=== PATIENT | male | born 1930 | race Caucasian/White ===

== ENCOUNTER → 2016-04-24 | Outpatient (CLI) | payer MEDICARE, BC ==
--- NOTE | 2016-04-24 10:55 | XR ---
EXAMINATION TYPE: XR chest 2V DATE OF EXAM: 04/24/2016 10:30 AM COMPARISON: 03/30/2015 HISTORY: Chest pain TECHNIQUE: Frontal and lateral views of the chest are obtained. FINDINGS: There is no focal air space opacity. No evidence for pnuemothorax.No pleural effusion. The cardiac silhouette size is within normal limits. The osseous structures are grossly intact. There is a large fixed hiatal hernia. IMPRESSION: 1. No acute cardiopulmonary process.
== END | disposition home or self-care (01) ==
LOC: RADXRMAIN 10:07
PROVIDERS: ATTEND Internal Medicine
DX: J06.9 Acute upper respiratory infection, unspecified (principal)
CPT/HCPCS: 71020

== ENCOUNTER 2016-08-09 11:56 | Emergency (ER) | payer MEDICARE, BC ==
[2016-08-09 12:46] VITALS: RESP 18; TEMP 97.5
--- NOTE | 2016-08-09 14:01 | CT ---
EXAMINATION TYPE: CT brain wo con DATE OF EXAM: 08/09/2016 1:37 PM COMPARISON: NONE INDICATION: Fall, left sided laceration/contusion. DLP: 1684 mGycm, Automated exposure control for dose reduction was used. CONTRAST: None CT of the brain is performed utilizing 3 mm thick sections through the posterior fossa and 3 mm thick sections through the remaining calvarium. Study is performed within 24 hours of arrival to the hosp [facility]. No abnormal hyperdensity is present to suggest an acute intracranial hemorrhage. No mass lesion is evident. No acute infarcts are evident. There is mild. Ventricular white matter hypodensity, likely on the bas is of chronic white matter ischemic changes. Ventricles and sulci are prominent for the patient age. Paranasal sinuses and mastoid air cells within the [id number] are clear. IMPRESSIONS: 1. Age-related atrophy with chronic appearing periventricular white matter ischemic changes.
--- NOTE | 2016-08-09 14:06 | CT ---
EXAMINATION TYPE: CT facial bones wo con DATE OF EXAM: 08/09/2016 1:37 PM COMPARISON: NONE HISTORY: Left sided laceration and contusion. CT DLP: 1684 mGycm Automated exposure control for dose reduction was used. TECHNIQUE: CT scan of the sinuses is performed without contrast, axial images are obtained, coronal r eformatted images are also reviewed. FINDINGS: Septal deviation is noted. No nasal bone fractures identified. Soft tissues appear within n ormal limits. The patient's laceration is not identified. Orbits are symmetrical. Paranasal sinuses a nd mastoid air cells are unremarkable. Dental amalgam scatter artifact is present at the level of the mandible. No acute fractures are evident. There are some punctate densities within the central forehead region above the bridge of the nose could be skin calcifications or foreign bodies at this location of the p atient's laceration. IMPRESSION: 1. Foreign bodies versus skin calcifications superior to the bridge of the nose. 2. No acute abnormality identified.
[2016-08-09 14:32] VITALS: BP 175/84; PULSE 82
[2016-08-09] MEDS ORDERED: DIPH,PERTUS(ACELL)TETVAC-LF 0.5 ML VIAL IM ONE (14:35)
--- NOTE | 2016-08-09 14:35 | ED ---
Fall HPI - General Chief Complaint: Fall Stated Complaint: Fall Time Seen by Provider: 08/09/16 12:50 Source: patient, family Mode of arrival: ambulatory - History of Present Illness Initial Comments: This is a 86-year-old male who states he was working around his [employer] tripped and fell. He states he had the left side of his face on cement. He denies any loss of consciousness no nausea no vomiting he has complains some left orbital pain and some abrasions and some redness about his left eye. He denies any visual disturbances does have a history of glaucoma and macular degeneration as well as cataract surgery in the left eye. He denies any other injuries such as back upper or lower extremity pain or other issues. He does not recall when his last tetanus shot was. MD Complaint: fall - Related Data Home Medications Medication Instructions Recorded Confirmed Finasteride [Proscar] 5 mg PO DAILY 03/30/15 08/09/16 Aspirin EC [Ecotrin Low Dose] 81 mg PO DAILY 08/09/16 08/09/16 Doxazosin Mesylate [Cardura] 8 mg PO HS 08/09/16 08/09/16 Ferrous Sulfate [Feosol] 325 mg PO DAILY 08/09/16 08/09/16 Latanoprost Ophth [Xalatan 0.005%] 1 drops BOTH EYES HS 08/09/16 08/09/16 Timolol 0.5% Ophth Soln [Timoptic 1 drop BOTH EYES BID 08/09/16 08/09/16 0.5% Ophth Soln] Allergies Allergy/AdvReac Type Severity Reaction Status Date / Time No Known Allergies Allergy Verified 08/09/16 13:23 Review of Systems ROS Statement: Those systems with pertinent positive or pertinent negative responses have been documented in the HPI. ROS Other: All systems not noted in ROS Statement are negative. Past Medical History Past Medical History: Prostate Disorder History of Any Multi-Drug Resistant Organisms: None Reported Past Surgical History: Joint Replacement Past Psychological History: No Psychological Hx Reported Smoking Status: Never smoker Past Alcohol Use History: None Reported Past Drug Use History: None Reported General Exam - General Exam Comments Initial Comments: This a well-developed well-nourished awake alert oriented 3 male he does demonstrate a [place] Coma Scale of 15 Limitations: no limitations General appearance: alert, in no apparent distress Head exam: Present: normocephalic, other (Examination the head and face demonstrates abrasions over the left eyebrow and the left inferior lateral orbit no wounds requiring suturing repair no step-off or crepitation.) Eye exam: Present: PERRL, EOMI, other (He does have a sub-conjunctival hematoma there is evidence of a cataract surgery. Examination GI grounds reveal no acute findings.) ENT exam: Present: normal exam, mucous membranes moist Neck exam: Present: normal inspection. Absent: tenderness, meningismus, lymphadenopathy Respiratory exam: Present: normal lung sounds bilaterally. Absent: respiratory distress, wheezes, rales, rhonchi, stridor Cardiovascular Exam: Present: regular rate, normal rhythm, normal heart sounds. Absent: systolic murmur, diastolic murmur, rubs, gallop, clicks GI/Abdominal exam: Present: soft, normal bowel sounds. Absent: distended, tenderness, guarding, rebound, rigid Extremities exam: Present: normal inspection, full ROM, normal capillary refill. Absent: tenderness, pedal edema, joint swelling, calf tenderness Back exam: Present: normal inspection Neurological exam: Present: alert, oriented X3, CN II-XII intact Psychiatric exam: Present: normal affect, normal mood Skin exam: Present: warm, dry, intact, normal color. Absent: rash Course Vital Signs 08/09/16 08/09/16 12:43 14:31 Temperature 97.5 F L 97.5 F L Pulse Rate 70 82 Respiratory 18 18 Rate Blood Pressure 139/89 175/84 O2 Sat by Pulse 96 95 Oximetry Medical Decision Making - Medical Decision Making I did discuss findings with the patient family. Patient will be discharged after receiving a tetanus shot. 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 He is to continue with his current medications. - Radiology Data Radiology results: report reviewed (I did review the imaging and reports are is no evidence of any acute findings.), image reviewed Disposition Clinical Impression: Fall, Facial abrasion, Subconjunctival hematoma Disposition: HOME SELF-CARE Condition: Good Instructions: Fall Prevention for Older Adults (ED), Abrasion (ED) Additional Instructions: Cold packs 24-48 hours, keep the wound clean and dry.
== END 2016-08-09 15:15 | disposition home or self-care (01) ==
LOC: EC 11:56
DX: S05.12XA Contusion of eyeball and orbital tissues, left eye, initial encounter (principal); N42.9 Disorder of prostate, unspecified; Z79.82 Long term (current) use of aspirin; Z79.899 Other long term (current) drug therapy; Z23 Encounter for immunization; W01.198A Fall on same level from slipping, tripping and stumbling with subsequent striking against other object, initial encounter; Y93.89 Activity, other specified
CPT/HCPCS: 70450; 70486; 90471; 90715; 99283